=== PATIENT | female | born 1985 | race Caucasian/White ===

== ENCOUNTER 2017-10-22 03:54 | Emergency (ER) | payer OTHER, MEDICAID ==
[~2017-10-22] VITALS: Ht 157.5 cm; Wt 70.0 kg
[2017-10-22 03:55] VITALS: BP 133/81; PULSE 70; RESP 16; TEMP 98.4; O2SAT 98
[2017-10-22] MEDS ORDERED: SODIUM CHLOR 0.9% 1000 ML INJ 1,000 ML IV SCH (04:05)
--- NOTE | 2017-10-22 04:07 | PD ---
HPI Chief Complaint: Abdominal Pain Time Seen by Provider: 04:05 Travel History International Travel<30 days: No Contact w/Intl Traveler<30days: No Traveled to known affect area: No History of Present Illness HPI 32-year-old female patient with history of no significant past medical issues, presents to the ER today for 2 hours of epigastric abdominal pains which she currently rates an 8 out of 10. She is not sure of any exacerbating or alleviating factors. She has been nauseous but denies any vomiting, diarrhea, fevers, or any other symptoms. She states that she has had a waxing waning course with this issue but has never had checked out before. Modifying Factors: None Associated Signs & Symptoms: Epigastric abdominal pains Risk Factors: None PFSH Past Medical History Medical History: Denies Significant Hx ?: Not LMP: 10/20/17 Past Surgical History Section: Yes Social History Alcohol Use: No Tobacco Use: No Substance Use: No Allergies-Medications (Allergen,Severity, Reaction): Coded Allergies: No Known Allergies (Unverified , 10/22/17) Reported Meds & Prescriptions Reported Meds & Active Scripts Active No Active Prescriptions or Reported Medications Review of Systems Except as stated in HPI: all other systems reviewed are Neg Physical Exam Narrative GENERAL: Well-developed young female patient currently in mild distress. Awake and oriented 3. SKIN: Focused skin assessment warm/dry. HEAD: Atraumatic. Normocephalic. EYES: Pupils equal and round. No scleral icterus. No injection or drainage. ENT: No nasal bleeding or discharge. Mucous membranes pink and moist. NECK: Trachea midline. No JVD. CARDIOVASCULAR: Regular rate and rhythm. No murmur appreciated. RESPIRATORY: No accessory muscle use. Clear to auscultation. Breath sounds equal bilaterally. GASTROINTESTINAL: Abdomen soft, epigastric tenderness without guarding or rebound, nondistended. Hepatic and splenic margins not palpable. MUSCULOSKELETAL: No obvious deformities. No clubbing. No cyanosis. No edema. NEUROLOGICAL: Awake and alert. No obvious cranial nerve deficits. Motor grossly within normal limits. Normal speech. PSYCHIATRIC: Appropriate mood and affect; insight and judgment normal. Data Data Last Documented VS Vital Signs Date Time Temp Pulse Resp B/P (MAP) Pulse Ox O2 Delivery O2 Flow Rate FiO2 10/22/17 03:55 98.4 70 16 133/81 (98) 98 Room Air Orders Orders Complete Blood Count With Diff (10/22/17 04:05) Comprehensive Metabolic Panel (10/22/17 04:05) Lipase (10/22/17 04:05) Urinalysis - C+S If Indicated (10/22/17 04:05) Iv Access Insert/Monitor (10/22/17 04:05) Ecg Monitoring (10/22/17 04:05) Oximetry (10/22/17 04:05) Ondansetron Inj (Zofran Inj) (10/22/17 04:15) Sodium Chlor 0.9% 1000 Ml Inj (Ns 1000 M (10/22/17 04:05) Sodium Chloride 0.9% Flush (Ns Flush) (10/22/17 04:15) Famotidine Inj (Pepcid Inj) (10/22/17 04:15) Al-Mag Hy-Si 40-40-4 Mg/Ml Liq (Mag-Al P (10/22/17 04:15) Lidocaine 2% Viscous (Xylocaine 2% Visco (10/22/17 04:15) Ed Urine Pregnancytest Poc (10/22/17 04:05) Dicyclomine Inj (Bentyl Inj) (10/22/17 05:15) Ct Abd/Pel W Iv Contrast(Rout) (10/22/17 05:08) Iohexol 350 Inj (Omnipaque 350 Inj) (10/22/17 06:07) Ed Discharge Order (10/22/17 06:36) Labs Laboratory Tests Test 10/22/17 04:30 White Blood Count 7.7 TH/MM3 Red Blood Count 4.90 MIL/MM3 Hemoglobin 12.9 GM/DL Hematocrit 38.8 % Mean Corpuscular Volume 79.2 FL Mean Corpuscular Hemoglobin 26.3 PG Mean Corpuscular Hemoglobin Concent 33.2 % Red Cell Distribution Width 12.9 % Platelet Count 322 TH/MM3 Mean Platelet Volume 8.3 FL Neutrophils (%) (Auto) 56.6 % Lymphocytes (%) (Auto) 30.2 % Monocytes (%) (Auto) 6.7 % Eosinophils (%) (Auto) 6.0 % Basophils (%) (Auto) 0.5 % Neutrophils # (Auto) 4.3 TH/MM3 Lymphocytes # (Auto) 2.3 TH/MM3 Monocytes # (Auto) 0.5 TH/MM3 Eosinophils # (Auto) 0.5 TH/MM3 Basophils # (Auto) 0.0 TH/MM3 CBC Comment DIFF FINAL Differential Comment Urine Color YELLOW Urine Turbidity CLEAR Urine pH 5.5 Urine Specific [place] 1.020 Urine Protein NEG mg/dL Urine Glucose (UA) NEG mg/dL Urine Ketones NEG mg/dL Urine Occult Blood NEG Urine Nitrite NEG Urine Bilirubin NEG Urine Urobilinogen LESS THAN 2.0 MG/DL Urine Leukocyte Esterase NEG Urine WBC 1 /hpf Urine Squamous Epithelial Cells 1 /hpf Urine Mucus FEW /lpf Microscopic Urinalysis Comment CULT NOT INDICATED Blood Urea Nitrogen 14 MG/DL Creatinine 0.66 MG/DL Random Glucose 112 MG/DL Total Protein 8.2 GM/DL Albumin 4.0 GM/DL Calcium Level 9.0 MG/DL Alkaline Phosphatase 84 U/L Aspartate Amino Transf (AST/SGOT) 18 U/L Alanine Aminotransferase (ALT/SGPT) 24 U/L Total Bilirubin 0.3 MG/DL Sodium Level 139 MEQ/L Potassium Level 3.8 MEQ/L Chloride Level 107 MEQ/L Carbon Dioxide Level 25.0 MEQ/L Anion Gap 7 MEQ/L Estimat Glomerular Filtration Rate 104 ML/MIN Lipase 124 U/L [facility] Medical Decision Making Medical Screen Exam Complete: Yes Emergency Medical Condition: Yes Medical Record Reviewed: Yes Interpretation(s) Laboratory Tests Test 10/22/17 04:30 Mean Corpuscular Volume 79.2 FL (80.0-100.0) Mean Corpuscular Hemoglobin 26.3 PG (27.0-34.0) Eosinophils (%) (Auto) 6.0 % (0.0-4.0) Eosinophils # (Auto) 0.5 TH/MM3 (0-0.4) Urine Mucus FEW /lpf (OCC) Random Glucose 112 MG/DL (74-106) Differential Diagnosis Epigastric abdominal pains: Gastritis versus gastroenteritis versus GERD versus pancreatitis Narrative Course Lab work was fairly unremarkable for any significant dehydration or metabolic issues. CAT scan shows signs of colitis. Patient was given IV fluids, Zofran, and Bentyl in the ER. Patient denies any sick contacts or bad food exposures. On reevaluation at 6:40 AM, she has not had any vomiting episodes in the ER my plan would be to release her with symptomatic relief for the nausea and diarrhea and follow-up with primary care doctor. Return for worsening in symptoms as necessary. The plan has been discussed with her and she states understanding. Diagnosis Primary Impression: Abdominal pain Additional Impression: Colitis Med/Other Pt SpecificInfo: Prescription(s) given Scripts Loperamide (Imodium A-D) 2 Mg Capsule 2 MG PO DIRECTED Y for DIARRHEA, #14 CAP 0 Refills One capsule after each loose stool. Not to exceed 8 tablets per day. Prov: Blanco Paz MD 10/22/17 Ondansetron Odt (Zofran Odt) 4 Mg Tab 4 MG SL Q6HR Y for Nausea/Vomiting, #7 TAB 0 Refills Prov: Blanco Paz MD 10/22/17 Disposition: 01 DISCHARGE HOME Condition: Stable Blanco Paz MD Oct 22, 2017 04:07
[2017-10-22] MEDS ORDERED: ALUMINUM/MAGNESIUM/SIMETH 30 ML CUP PO ONE (04:15)
[2017-10-22] MEDS ORDERED: FAMOTIDINE 20 MG/2 ML VIAL IV PUSH ONE (04:15)
[2017-10-22] MEDS ORDERED: LIDOCAINE VISCOUS 2% SOLN 15 ML UDC PO ONE (04:15)
[2017-10-22] MEDS ORDERED: ONDANSETRON HCL 4 MG/2 ML VIAL IVP ONE (04:15)
[2017-10-22] MEDS ORDERED: SODIUM CHLORIDE 0.9% FLUSH 10 ML FLUSH IV FLUSH PRN (04:15)
[2017-10-22 05:11] LABS: AUTOMATED NEUTROPHIL # 4.3 TH/MM3 (1.8-7.7); BASOPHIL % 0.5 % (0.0-2.0); EOSINOPHIL # 0.5 TH/MM3 (0-0.4); HEMATOCRIT 38.8 % (35.0-46.0); HEMOGLOBIN 12.9 GM/DL (11.6-15.3); LYMPH % 30.2 % (9.0-44.0); LYMPHOCYTE # 2.3 TH/MM3 (1.0-4.8); MEAN CELL VOLUME 79.2 FL (80.0-100.0); MEAN CORPUSCULAR HEMOGLOBIN 26.3 PG (27.0-34.0); MEAN CORPUSCULAR HGB CONC 33.2 % (32.0-36.0); MEAN PLATELET VOLUME 8.3 FL (7.0-11.0); MONO % 6.7 % (0.0-8.0); MONOCYTE # 0.5 TH/MM3 (0-0.9); NEUT % 56.6 % (16.0-70.0); PLATELET COUNT 322 TH/MM3 (150-450); RED CELL DISTRIBUTION WIDTH 12.9 % (11.6-17.2); WHITE BLOOD COUNT 7.7 TH/MM3 (4.0-11.0)
[2017-10-22] MEDS ORDERED: DICYCLOMINE HCL 20 MG/2 ML VIAL IM ONE (05:15)
[2017-10-22 05:28] LABS: BILIRUBIN, URINE NEG (NEG); BLOOD, URINE NEG (NEG); GLUCOSE,URINE NEG (NEG); KETONE, URINE NEG (NEG); MUCUS URINE FEW /lpf (OCC); NITRITE,URINE NEG (NEG); PH, URINE 5.5 (5.0-8.5); SQUAMOUS EPITHELIAL CELL URINE 1 /hpf (0-5); URINE COLOR YELLOW (YELLW/STRAW); URINE LEUKOCYTE ESTERASE NEG (NEG)
[2017-10-22 05:30] LABS: AST (GOT) 18 U/L (15-37); BLOOD UREA NITROGEN 14 MG/DL (7-18); CHLORIDE 107 MEQ/L (98-107); CREATININE 0.66 MG/DL (0.50-1.00); GLOMERULAR FILTRATION RATE 104 ML/MIN (>89); GLUCOSE,RANDOM 112 MG/DL (74-106); SODIUM (NA) 139 MEQ/L (136-145)
[2017-10-22 05:35] LABS: ALKALINE PHOSPHATASE 84 U/L (45-117); ALT (GPT) 24 U/L (10-53); TOTAL BILIRUBIN ADULT 0.3 MG/DL (0.2-1.0); TOTAL PROTEIN 8.2 GM/DL (6.4-8.2)
[2017-10-22] MEDS ORDERED: IOHEXOL 350 MG/ML 10 ML VIAL (for RAD DIAG) IVCONTRAST ONE (06:07)
--- NOTE | 2017-10-22 06:35 | RADRPT ---
EXAM DATE/TIME: 10/22/2017 06:05 [facility] COMPARISON: No previous studies available for comparison. INDICATIONS : Abdominal pain X two hours. IV CONTRAST: 96 cc Omnipaque 350 (iohexol) IV ORAL CONTRAST: No oral contrast ingested. RADIATION DOSE: 10.90 CTDIvol (mGy) MEDICAL HISTORY : None SURGICAL HISTORY : section. ENCOUNTER: Initial ACUITY: 1 day PAIN SCALE: 7/10 LOCATION: abdomen TECHNIQUE: Volumetric scanning of the abdomen and pelvis was performed. Using automated exposure control and ad justment of the mA and/or kV according to patient size, radiation dose was kept as low as reasonably achievable to obtain optimal diagnostic quality images. DICOM format image data is available electro nically for review and comparison. FINDINGS: LOWER LUNGS: The visualized lower lungs are clear. LIVER: Homogeneous density without lesion. There is no dilation of the biliary tree. No calcified gallston es. SPLEEN: Normal size without lesion. PANCREAS: Within normal limits. KIDNEYS: Normal in size and shape. There is no mass, stone or hydronephrosis. ADRENAL GLANDS: Within normal limits. VASCULAR: There is no aortic aneurysm. BOWEL/MESENTERY: There is wall thickening of the colon, fairly generalized but especially descending and sigmoid. No a bscess, perforation or obstruction. ABDOMINAL WALL: Within normal limits. RETROPERITONEUM: There is no lymphadenopathy. BLADDER: No wall thickening or mass. REPRODUCTIVE: Within normal limits. INGUINAL: There is no lymphadenopathy or hernia. MUSCULOSKELETAL: Within normal limits for patient age. CONCLUSION: Mild uncomplicated, nonspecific long segment colitis. Marcio Davila MD on October 22, 2017 at 6:32 Board Certified Radiologist. This report was verified electronically.
[2017-10-22] MEDS ORDERED: LOPE-1 PO (06:43)
[2017-10-22] MEDS ORDERED: ZOFR4TAB3 SL (06:43)
== END 2017-10-22 06:58 | disposition home or self-care (01) ==
LOC: NEPC 03:54
DX: K52.9 Noninfective gastroenteritis and colitis, unspecified (principal)
CPT/HCPCS: 74177; 80053; 81001; 83690; 84703; 85025; 96361; 96372; 96374; 99284; J0500; J2405; J7030; Q9967